=== PATIENT | female | born 1990 | race Caucasian/White ===

== ENCOUNTER 2020-10-11 20:49 | Observation (INO) | payer OTHER ==
[2020-10-11 22:51] LABS: #Basophils 0.1 thou/uL (0.0-0.2); #Eosinphils 0.2 thou/uL (0.0-0.7); #Lymphocytes 2.6 thou/uL (1.20-3.40); #Neutrophils 5.8 thou/uL (1.40-6.50); %Basophils 0.9 % (0.0-1.0); %Eosinophils 1.6 % (0.0-10.0); %Lymphocytes 27.4 % (21.0-51.0); %Monocytes 9.9 % (0.0-10.0); %Neutrophils 60.2 % (42.0-75.0); Hemoglobin 14.5 g/dL (12.0-16.0); Mean Corpuscular Hemoglobin 27.3 pg (27.0-31.0); Mean Corpuscular Volume 82.7 fL (78.0-98.0); Mean Platelet Volume 7.1 fL (7.4-10.4); Platelet Count 344 thou/uL (130-400); RBC Distribution Width 11.5 % (11.5-14.5); White Blood Cell (WBC) Count 9.6 thou/uL (4.8-10.8)
[2020-10-11 22:59] LABS: AST (SGOT) 48 U/L (5-34); Albumin 4.3 g/dL (3.5-5.0); Alkaline Phosphatase 34 U/L (40-110); Anion Gap 15 mmol/L (10-20); BUN (Urea Nitrogen) 15 mg/dL (7.0-18.7); Bilirubin, Total 0.7 mg/dL (0.2-1.2); Calc. Creatinine Clearance 0 mL/min (70-130); Calcium 9.4 mg/dL (7.8-10.44); Carbon Dioxide 19 mmol/L (22-29); Chloride 108 mmol/L (98-107); Globulin 3.5 g/dL (2.4-3.5); Glucose 80 mg/dL (70-105); Potassium 3.6 mmol/L (3.5-5.1); Protein, Total 7.8 g/dL (6.0-8.3); Sodium 138 mmol/L (136-145)
[2020-10-12] MEDS ORDERED: Ketorolac Tromethamine 10 MG TAB PO PRN (02:10)
[2020-10-12] MEDS ORDERED: HYDROcodone/Acetaminophen 5/325 mg Tablet PO PRN (02:10)
[2020-10-12 02:20] VITALS: BMI 27.3
[2020-10-12] MEDS: HYDROcodone/Acetaminophen 5/325 mg Tablet PO PRN ×2 (05:33→19:07)
[2020-10-12 12:18] LABS: SARS-CoV-2 PCR by NAA Not Detected (NotDetected)
[2020-10-12] MEDS ORDERED: Polyethylene Glycol 3350 17 GM Packet PO SCH (19:30)
[2020-10-13] MEDS: Polyethylene Glycol 3350 17 GM Packet PO SCH (08:08)
[2020-10-13] MEDS ORDERED: Senokot S 8.6-50 MG TAB PO SCH (14:30)
[2020-10-13] MEDS ORDERED: Bisacodyl 5 MG TAB PO PRN (18:47)
[2020-10-13] MEDS: Senokot S 8.6-50 MG TAB PO SCH (20:16)
[2020-10-14] MEDS: Polyethylene Glycol 3350 17 GM Packet PO SCH (08:30)
[2020-10-14] MEDS: Senokot S 8.6-50 MG TAB PO SCH ×2 (08:30→20:58)
[2020-10-14] MEDS: Escitalopram Oxalate 20 mg Tablet PO SCH (10:32)
[2020-10-15] MEDS: Senokot S 8.6-50 MG TAB PO SCH ×2 (10:09→20:03)
[2020-10-15] MEDS: Escitalopram Oxalate 20 mg Tablet PO SCH (10:09)
[2020-10-15] MEDS: Polyethylene Glycol 3350 17 GM Packet PO SCH (10:09)
[2020-10-16] MEDS: Senokot S 8.6-50 MG TAB PO SCH ×2 (09:01→20:20)
[2020-10-16] MEDS: Polyethylene Glycol 3350 17 GM Packet PO SCH (09:01)
[2020-10-16] MEDS: Escitalopram Oxalate 20 mg Tablet PO SCH (09:01)
[2020-10-17] MEDS: Escitalopram Oxalate 20 mg Tablet PO SCH (08:17)
[2020-10-17] MEDS: Polyethylene Glycol 3350 17 GM Packet PO SCH (08:17)
[2020-10-17] MEDS: Senokot S 8.6-50 MG TAB PO SCH ×2 (08:17→21:08)
[2020-10-18 08:05] VITALS: BP 125/76; TEMP 98.5
[2020-10-18] MEDS: Polyethylene Glycol 3350 17 GM Packet PO SCH (08:41)
[2020-10-18] MEDS: Escitalopram Oxalate 20 mg Tablet PO SCH (08:42)
[2020-10-18] MEDS: Senokot S 8.6-50 MG TAB PO SCH (08:44)
== END 2020-10-18 17:38 ==
LOC: ERS 20:49 → T4-B 10-12 01:14
PROVIDERS: ADMIT Internal Medicine; ATTEND Internal Medicine
DX: R53.1 Weakness (principal); R29.6 Repeated falls; G89.29 Other chronic pain; M25.551 Pain in right hip; G80.9 Cerebral palsy, unspecified; K59.00 Constipation, unspecified; Z66 Do not resuscitate; Z79.899 Other long term (current) drug therapy; Z20.822 Contact with and (suspected) exposure to COVID-19; W19.XXXA Unspecified fall, initial encounter; Y93.89 Activity, other specified; Y92.238 Other place in hospital as the place of occurrence of the external cause
CPT/HCPCS: 36415; 80053; 85025; G0378; U0003; U0005

== ENCOUNTER 2023-04-09 09:51 | Outpatient (CLI) | payer OTHER | END 2023-04-09 09:52 | disposition home or self-care (01) | PROVIDERS: ATTEND Family Medicine | DX: G80.9 Cerebral palsy, unspecified (principal); R29.898 Other symptoms and signs involving the musculoskeletal system ==